=== PATIENT | male | born 1980 | race Two or more races ===

== ENCOUNTER 2022-12-14 14:24 | Emergency (ER) | payer MEDICAID, OTHER ==
[~2022-12-14] VITALS: Ht 188 cm; Wt 103.0 kg
[2022-12-14 14:38] VITALS: BP 128/92
[2022-12-14] MEDS ORDERED: SODIUM CHLORIDE 0.9% 1,000 ML IV ONE ×2 (14:45→16:15)
[2022-12-14 15:05] LABS: Basophils # (auto) 0.3 10 ^3/uL (0-0.2); Basophils % (auto) 2.6 % (0.0-2.0); Eosinophils # (auto) 0.1 10 ^3/uL (0-0.8); Eosinophils % (auto) 0.5 % (0.0-7.0); Hematocrit 45.2 % (41.0-53.0); Hemoglobin 15.9 g/dL (13.5-17.5); Lymphocytes # (auto) 1.5 10 ^3/uL (0.4-5.4); Lymphocytes % (auto) 14.5 % (10.0-50.0); Mean Corpuscular Hemoglobin 31.1 pg (28.0-32.0); Mean Corpuscular Hgb Conc. 35.2 g/dL (32.0-36.0); Mean Corpuscular Volume 88.2 fL (80.0-100.0); Monocytes % (auto) 9.5 % (0.0-12.0); Neutrophils # (auto) 7.5 10 ^3/uL (1.6-8.6); Neutrophils % (auto) 72.9 % (37.0-80.0); Nucleated Red Blood Cells % 0.2 %; Red Blood Cells 5.12 10^6/uL (4.5-5.90); Red Cell Distribution Width 13.5 % (11.8-14.3); White Blood Cell 10.3 10^3/uL (4.4-10.8)
[2022-12-14 15:19] LABS: Albumin 4.4 g/dL (3.4-5.0); Anion Gap 9 (5-15); Blood Alcohol < 3.0 mg/dL (0-5); Blood Urea Nitrogen 12 mg/dL (7-18); Carbon Dioxide 24 mmol/L (21-32); Chloride 110 mmol/L (98-107); Glucose 91 mg/dL (74-106); Magnesium 2.3 mg/dL (1.6-2.6); Potassium 4.3 mmol/L (3.5-5.1); Sodium 143 mmol/L (136-145)
[2022-12-14 15:24] LABS: Alanine Aminotransferase 44 U/L (16-61); Alkaline Phosphatase 71 U/L (45-117); Aspartate Aminotransferase 38 U/L (15-37); BUN/Creatinine Ratio 16.9 (10.0-20.0); Bilirubin, Total 1.3 mg/dL (0.2-1.0); Creatine Kinase IFCC 583 U/L (39-308); GFR African American 156 mL/min; GFR Non-African American 129 mL/min; Total Protein 7.1 g/dL (6.4-8.2)
[2022-12-14 15:33] LABS: Urine Bacteria NONE SEEN /hpf (None Seen); Urine Blood Negative /uL (Negative); Urine Mucus MANY (None Seen); Urine Sperm PRESENT /hpf (None Seen); Urine WBC 2 /hpf (0 - 3)
[2022-12-14 15:41] LABS: Alcohol, Urine < 3.0 mg/dL (0-10); Barbiturate Scree,Urine NEGATIVE (NEGATIVE); Benzodiazephine Screen, Urine NEGATIVE (NEGATIVE)
[2022-12-14 15:49] LABS: Amphetamine Screen, Urine NEGATIVE (NEGATIVE); Cannabinoid Screen, Urine POSITIVE (NEGATIVE); Cocaine Screen, Urine NEGATIVE (NEGATIVE); Opiate Scree,Urine NEGATIVE (NEGATIVE); Phencyclidine Screen, Urine NEGATIVE (NEGATIVE)
[2022-12-14] MEDS ORDERED: OLANZapine 5 MG TAB PO SCH (22:00)
== END 2022-12-14 19:55 ==
LOC: EDBD 14:24 → ER 14:24
DX: F20.9 Schizophrenia, unspecified (principal); M62.82 Rhabdomyolysis; F29 Unspecified psychosis not due to a substance or known physiological condition; R41.0 Disorientation, unspecified; R07.89 Other chest pain
CPT/HCPCS: 36415; 71045; 80053; 80307; 80320; 81001; 82550; 83605; 83735; 84484; 85025; 93005; 96360; 99285; J7030